=== PATIENT | female | born 1985 | race Caucasian/White ===

== ENCOUNTER 2021-12-03 17:20 | Emergency (ER) | payer OTHER ==
[~2021-12-03] VITALS: Ht 165.1 cm; Wt 91.0 kg
[2021-12-03] MEDS ORDERED: HYDROCODONE/ACETAMINOPHEN 5/325MG TABLET PO ONE (18:45)
[2021-12-03] MEDS ORDERED: ONDANSETRON 4MG ODT PO ONE (18:45)
[2021-12-03] MEDS ORDERED: TRAM50TA3 MT (21:21)
[2021-12-03] MEDS ORDERED: IBUP-2030 MT (21:21)
[2021-12-03 21:57] VITALS: BP 135/76
== END 2021-12-03 21:59 | disposition home or self-care (01) ==
LOC: ER 17:53
DX: S49.81XA Other specified injuries of right shoulder and upper arm, initial encounter (principal); S79.811A Other specified injuries of right hip, initial encounter; S69.81XA Other specified injuries of right wrist, hand and finger(s), initial encounter; H54.7 Unspecified visual loss; M54.50 Low back pain, unspecified; W01.0XXA Fall on same level from slipping, tripping and stumbling without subsequent striking against object, initial encounter; Y93.89 Activity, other specified; Y92.512 Supermarket, store or market as the place of occurrence of the external cause; Y99.8 Other external cause status
CPT/HCPCS: 29125; 70450; 72100; 72125; 72128; 73030; 73110; 73130; 73502; 81025; 99284; Q0162